=== PATIENT | female | born 1985 | race Caucasian/White ===

== ENCOUNTER 2022-11-04 15:13 | Emergency (ER) | payer SELFPAY ==
[2022-11-04 15:59] VITALS: BP 106/69; PULSE 84; RESP 18; TEMP 98.2; BMI 26.4
[2022-11-04] MEDS ORDERED: KETOROLAC TROMETHAMINE 30 MG/1 ML VIAL IVPUSH ONE (16:34)
[2022-11-04] MEDS ORDERED: LIDOCAINE 5% TOPICAL PATCH TP ONE (16:34)
[2022-11-04] MEDS ORDERED: DEXAMETHASONE SOD PHOSPHATE 10 MG/1 ML VIAL IVPUSH ONE (16:34)
[2022-11-04] MEDS ORDERED: diazePAM 5 MG TABLET PO ONE (16:34)
[2022-11-04] MEDS ORDERED: diazePAM 5 MG TABLET ONE (16:39)
[2022-11-04] MEDS ORDERED: KETOROLAC TROMETHAMINE 30 MG/1 ML VIAL ONE (16:39)
[2022-11-04] MEDS ORDERED: DEXAMETHASONE SOD PHOSPHATE 10 MG/1 ML VIAL ONE (16:39)
[2022-11-04] MEDS ORDERED: LIDOCAINE 5% TOPICAL PATCH ONE (16:39)
[2022-11-04 19:21] LABS: EPI CELLS 28 /uL (0-25.1); HYALINE CASTS 0 /uL (0-3.1); PH,URINE 5.5 (5.0-8.0); URINE APPEARANCE CLEAR; URINE BACTERIA 723 /uL (0-1359); URINE BILIRUBIN NEGATIVE (NEGATIVE); URINE COLOR YELLOW; URINE GLUCOSE (UA) NEGATIVE (NEGATIVE); URINE KETONE TRACE (NEGATIVE); URINE LEUK ESTERASE 1+ (NEGATIVE); URINE NITRITE NEGATIVE (NEGATIVE); URINE PROTEIN NEGATIVE (NEGATIVE); URINE RBC 22 /uL (0-23.9); URINE UROBILINOGEN 0.2 mg/dL (0.2-1.0); URINE WBC 34 /uL (0-25.8)
[2022-11-04] MEDS ORDERED: ACETAMINOPHEN 1000 MG/100 ML BAG IVPB ONE (19:21)
[2022-11-04] MEDS ORDERED: ACETAMINOPHEN INJECTION 100 ML IVPB ONE (19:23)
[2022-11-04] MEDS ORDERED: traMADol HCL 50 MG TABLET PO ONE (20:57)
[2022-11-04] MEDS ORDERED: traMADol HCL 50 MG TABLET ONE (21:03)
[2022-11-04] MEDS ORDERED: LIDOCAINE PATCH REMOVAL MC SCH (22:00)
== END 2022-11-04 22:04 | disposition home or self-care (01) ==
LOC: JERFT 15:13
PROC: 3E033GC Introduction of Other Therapeutic Substance into Peripheral Vein, Percutaneous Approach (ICD-10-PCS; principal; 2022-11-04)
DX: M54.41 Lumbago with sciatica, right side (principal); M54.42 Lumbago with sciatica, left side
CPT/HCPCS: 72100-TC-FY; 72131-TC; 81003; 84703; 99285-25; J1100

== ENCOUNTER 2024-08-10 09:42 | Emergency (ER) | payer SELFPAY ==
[2024-08-10 09:57] VITALS: BP 133/81; PULSE 66; RESP 18; TEMP 97.8; BMI 26.6
[2024-08-10] MEDS ORDERED: LIDOCAINE 4% PATCH TP ONE (10:22)
[2024-08-10] MEDS ORDERED: METHOCARBAMOL 500 MG TABLET ONE (10:22)
[2024-08-10] MEDS ORDERED: KETOROLAC TROMETHAMINE 30 MG/1 ML VIAL ONE (10:22)
[2024-08-10] MEDS ORDERED: ACETAMINOPHEN 500 MG TABLET (FP) ONE (10:23)
[2024-08-10] MEDS: KETOROLAC TROMETHAMINE 30 MG/1 ML VIAL IVPUSH ONE (10:30)
[2024-08-10] MEDS: LIDOCAINE 4% PATCH TP ONE (10:30)
[2024-08-10] MEDS: METHOCARBAMOL 500 MG TABLET PO ONE (10:30)
[2024-08-10] MEDS: ACETAMINOPHEN 500 MG TABLET (FP) PO ONE (10:31)
== END 2024-08-10 10:52 | disposition home or self-care (01) ==
LOC: JERFT 09:42
PROC: 3E033GC Introduction of Other Therapeutic Substance into Peripheral Vein, Percutaneous Approach (ICD-10-PCS; principal; 2024-08-10)
DX: M54.41 Lumbago with sciatica, right side (principal)
CPT/HCPCS: 99284-25